=== PATIENT | female | born 1950 | race Caucasian/White ===

== ENCOUNTER → 2018-02-22 | Outpatient (CLI) | payer MEDICARE, BC | LOC: MC.RAD 07:26 | DX: N63.11 Unspecified lump in the right breast, upper outer quadrant (principal); Z98.82 Breast implant status ==

== ENCOUNTER → 2018-03-24 | Outpatient (CLI) | payer MEDICARE, BC ==
[~2018-03-24] MED LIST: ALEVE 220MG220 MG PO; BENADRYL25 M2 PO; BIOTIN5000 MCG PO; COZAAR 50MG50 MG/TAB PO; LOPID 600M600 MG/TAB PO; NEXIUM 24HR20 M1 PO; NORCO 325 MG-51 TAB PO; OSCAL 500 TAB500 MG PO; TYLENOL 500MG500 MG PO; TYLENOL PM EXTR1 TA1 PO; VITAMIN A10k PO; VITAMIND3 5000 PO
== END ==
LOC: COL.RAD 13:21
DX: C50.411 Malignant neoplasm of upper-outer quadrant of right female breast (principal)
CPT/HCPCS: A9541

== ENCOUNTER 2018-03-25 06:33 | Day surgery (SDC) | payer MEDICARE, BC ==
[~2018-03-25] VITALS: Ht 157.5 cm; Wt 60.5 kg
[2018-03-25] VITALS (7 sets, daily range): BP systolic 103–124; BP diastolic 47–68; PULSE 65–84; TEMP 97.6–98.1
[2018-03-25] MEDS ORDERED: COZAAR 50MG50 MG/TAB PO (08:20)
[2018-03-25] MEDS ORDERED: LOPID 600M600 MG/TAB PO (08:21)
[2018-03-25] MEDS ORDERED: BENADRYL25 M2 PO (08:22)
[2018-03-25] MEDS ORDERED: BIOTIN5000 MCG PO (08:22)
[2018-03-25] MEDS ORDERED: VITAMIND3 5000 PO (08:23)
[2018-03-25] MEDS ORDERED: NEXIUM 24HR20 M1 PO (08:24)
[2018-03-25] MEDS ORDERED: VITAMIN A10k PO (08:24)
[2018-03-25] MEDS ORDERED: TYLENOL PM EXTR1 TA1 PO (08:25)
[2018-03-25] MEDS ORDERED: ALEVE 220MG220 MG PO (08:26)
[2018-03-25] MEDS ORDERED: OSCAL 500 TAB500 MG PO (08:26)
[2018-03-25] MEDS ORDERED: TYLENOL 500MG500 MG PO (08:26)
[2018-03-25] MEDS ORDERED: NORCO 325 MG-51 TAB PO (13:07)
== END 2018-03-25 16:15 | disposition home or self-care (01) ==
LOC: SDCO 06:33
DX: C50.411 Malignant neoplasm of upper-outer quadrant of right female breast (principal); Z17.0 Estrogen receptor positive status [ER+]; I10 Essential (primary) hypertension; Z80.3 Family history of malignant neoplasm of breast; Z79.899 Other long term (current) drug therapy; E78.00 Pure hypercholesterolemia, unspecified; Z80.0 Family history of malignant neoplasm of digestive organs; C77.3 Secondary and unspecified malignant neoplasm of axilla and upper limb lymph nodes
CPT/HCPCS: C1788; J0330; J0690; J1100; J2250; J2405; J2550; J2704; J2795; J3010; J7120

== ENCOUNTER 2018-03-31 07:23 | Day surgery (SDC) | payer MEDICARE, BC ==
[~2018-03-31] VITALS: Ht 157.5 cm; Wt 57.5 kg
[2018-03-31] VITALS (7 sets, daily range): BP systolic 94–148; BP diastolic 44–72; PULSE 77–88; TEMP 97.2–97.8
[2018-03-31] MEDS ORDERED: NORCO 325 MG-51 TAB PO (10:23)
== END 2018-03-31 12:30 | disposition home or self-care (01) ==
LOC: SDCO 07:23
DX: C77.3 Secondary and unspecified malignant neoplasm of axilla and upper limb lymph nodes (principal); C50.411 Malignant neoplasm of upper-outer quadrant of right female breast; E78.00 Pure hypercholesterolemia, unspecified; I10 Essential (primary) hypertension; K21.9 Gastro-esophageal reflux disease without esophagitis; Z90.11 Acquired absence of right breast and nipple; Z87.891 Personal history of nicotine dependence; Z80.3 Family history of malignant neoplasm of breast; Z80.1 Family history of malignant neoplasm of trachea, bronchus and lung; Z80.8 Family history of malignant neoplasm of other organs or systems
CPT/HCPCS: J0690; J1100; J1885; J2250; J2405; J2704; J2765; J2795; J3010; J7120

== ENCOUNTER → 2018-04-14 | Outpatient (CLI) | payer MEDICARE, BC | LOC: COL.VAS 08:46 | DX: Z51.11 Encounter for antineoplastic chemotherapy (principal); C50.411 Malignant neoplasm of upper-outer quadrant of right female breast ==

== ENCOUNTER 2018-07-01 09:14 | Observation (INO) | payer MEDICARE, BC ==
[2018-07-01] VITALS (23 sets, daily range): BP systolic 100–139; BP diastolic 50–79; PULSE 79–100; TEMP 97.8–99.4
[~2018-07-01] VITALS: Wt 62.0 kg
[~2018-07-01 09:14] MED LIST changes: +DECADRON 1MG TAB1 MG PO; +DECADRON 4MG TAB4 MG PO; +HERCEPTIN440 MG/VIA IV; +K-DUR20 MEQ PO; +MAG-OX 400400 MG/TAB PO; +NEURONTIN300 MG/CAP PO; +NOVAPLUS CAR10 MG/ML IV; +RESTORIL 1515 MG/CAP PO; +SENSIPAR30 MG PO; +TAXOTERE IV
--- NOTE | 2018-07-01 10:35 | NUR ---
Pt to ct per ambulation. Pt placed in supine position and monitors applied.
--- NOTE | 2018-07-01 10:40 | NUR ---
O2 on at 2l/nc, Dr Hinkle in to room and talks with pt regarding procedure.
--- NOTE | 2018-07-01 11:01 | NUR ---
Specimens obtained by Dr Hinkle and placed in formalin. Specimen labeled.
--- NOTE | 2018-07-01 11:15 | NUR ---
Pt to EU 10 per cart s/p lung bx. Pt resting well, at bedside.
--- NOTE | 2018-07-01 13:55 | NUR ---
Pt to rad per w/c with Amber NAJERA for chest tube.
--- NOTE | 2018-07-01 14:40 | NUR ---
PT WAS TAKEN TO ROOM 353. ASSISTED TO BED. IN ROOM. REPORT GIVEN TO VANDANA NAJERA. PT STATES SHE IS FEELING FINE.
--- NOTE | 2018-07-01 14:50 | NUR ---
Pt arrives to medical floor from radiology. Pt alert, oriented, able to ambulate in room. Meds updated. Pt has chemo every 3 weeks; last received on last June 27. Pt has Heimlech chest tube placed by radiology intact to left chest. Remains on 2L O2 via NC. at bedside. Denies further needs at this time; will continue to monitor.
--- NOTE | 2018-07-01 15:33 | NUR ---
PT BROUGHT FROM EU [address] PLACED ON THE TABLE AND MONITORING EQUIPMENT PLACED.
--- NOTE | 2018-07-01 15:34 | NUR ---
PT GIVEN 1 MG VERSED AND [address] M[address] FROM [address] SMITH.
--- NOTE | 2018-07-01 15:35 | NUR ---
PT DOING WELL. VSS
--- NOTE | 2018-07-01 15:36 | NUR ---
PROCEDURE COMPLETED. PT STATES SHE IS FEELING FINE. INSTRUCTED PT ON CHEST TUBE CARE.
--- NOTE | 2018-07-01 18:00 | NUR ---
Pt had uneventful afternoon. Is complaining of minimal pain from the chest tube; prn tylenol given. Denies further needs at this time.
--- NOTE | 2018-07-01 19:02 | NUR ---
Pt complaining of incision pain; prn pain med and ice pack provided.
--- NOTE | 2018-07-01 21:34 | NUR ---
pt resting in bed. reports pain at incision site, prn meds give, some nausea, denied needs for meds. ANGIE diminished. LLL diminished. all lung ryan clear. bowel sounds normoactive. reported BM yesterday. no swelling. radial and pedal pulses 3+. no needs at this time, call light in reach.
[2018-07-02] VITALS (7 sets, daily range): BP systolic 104–140; BP diastolic 49–74; PULSE 56–92; TEMP 97.3–98.3
--- NOTE | 2018-07-02 00:17 | NUR ---
pt resting in bed. no pain. no nausea. pt denies needs at this time. brandon light in reach
--- NOTE | 2018-07-02 01:33 | NUR ---
pt reports pain in incision site, increases when coughing. prn pain meds given. reports relief. no needs at this time call light in reach
--- NOTE | 2018-07-02 05:14 | NUR ---
pt requested a stool softener, c/o constipation d/t narcotics- prn stool softener given. some incisional pain 3-5/10 throughout night. no needs at this time, call light in reach
--- NOTE | 2018-07-02 08:08 | NUR ---
Pt resting in bed with call light within reach; assessment complete and charted. Continues to have Heimlech valve intact to left chest. Denies further needs at this time; will continue to monitor.
--- NOTE | 2018-07-02 17:02 | NUR ---
Plan to return homw in [place] with Dannie . Patient denies the use of any DME's. Declines homehealth care. Patient reports PCP Dr. Padron, declines [facility], and drisst is how she obtains medicines. No additonal needs identify.
--- NOTE | 2018-07-02 17:44 | NUR ---
Pt resting in chair with call light within reach and at bedside. States she will want a pain pill in a little bit. Denies further needs at this time; will continue to monitor.
--- NOTE | 2018-07-02 18:51 | NUR ---
Report given to DANIA Castro. Reviewed clamping the chest tube between 0600 and 0700 tomorrow morning. Pt resting in chair. PRN pain meds given as ordered.
--- NOTE | 2018-07-02 20:44 | NUR ---
PT SITTING IN CHIAR A+OX4. NO PAIN AT THIS TIME. NO SOA. NO NEEDS AT THIS TIME. CALL LIGHT IN REACH
--- NOTE | 2018-07-03 00:48 | NUR ---
pt sanchop in chair. call light in reach
[2018-07-03 04:04] VITALS: BP 140/67; PULSE 86
--- NOTE | 2018-07-03 06:05 | NUR ---
this nurse closed pts heimlich valve at 0605. reports incisional pain, denied pain meds. no needs at this time, call light in reach
[2018-07-03 07:51] VITALS: BP 138/76; PULSE 88; TEMP 98.4
--- NOTE | 2018-07-03 10:00 | NUR ---
Assessment completed, alert/oriented, vital signs stable, denies any pain or discomfort, Chest tube was clamped at 0600 / CXR done and to review prior to removal of chest tube, she denies any increased SOA or dyspnea, lungs aer CTA / no resp difficulty noted, heart RRR, present at bedside denies needs
--- NOTE | 2018-07-03 12:41 | NUR ---
discharge instructions reviewed with the patient and her , isntructed to follow up with as instructed, continue previous home meds as before, no neew meds, IV site removed, I personally escorted the mout the door via wheelchair
== END 2018-07-03 12:54 | disposition home or self-care (01) ==
LOC: COL.RAD 09:14 → MEDICAL 14:46
PROVIDERS: ADMIT Internal Medicine
DX: J93.9 Pneumothorax, unspecified (principal); I10 Essential (primary) hypertension; K21.9 Gastro-esophageal reflux disease without esophagitis; E78.5 Hyperlipidemia, unspecified; G47.00 Insomnia, unspecified; G62.9 Polyneuropathy, unspecified; R91.1 Solitary pulmonary nodule; Z90.11 Acquired absence of right breast and nipple; Z85.3 Personal history of malignant neoplasm of breast; Z85.79 Personal history of other malignant neoplasms of lymphoid, hematopoietic and related tissues; Z87.891 Personal history of nicotine dependence
CPT/HCPCS: 99233-AI; G0378; G0379; J2250; J3010

== ENCOUNTER → 2018-08-09 | Outpatient (CLI) | payer MEDICARE, BC | LOC: COL.VAS 10:11 | DX: Z13.6 Encounter for screening for cardiovascular disorders (principal); C50.411 Malignant neoplasm of upper-outer quadrant of right female breast; I34.0 Nonrheumatic mitral (valve) insufficiency ==

== ENCOUNTER → 2018-11-04 | Outpatient (CLI) | payer MEDICARE, BC | LOC: COL.VAS 08:31 | DX: Z51.11 Encounter for antineoplastic chemotherapy (principal); C50.411 Malignant neoplasm of upper-outer quadrant of right female breast ==

== ENCOUNTER → 2019-02-07 | Outpatient (CLI) | payer MEDICARE, BC | LOC: COL.VAS 09:15 | DX: C50.411 Malignant neoplasm of upper-outer quadrant of right female breast (principal) ==

== ENCOUNTER 2020-06-17 09:52 | Outpatient (RCR) | payer MEDICARE, BC | END 2020-06-24 | disposition home or self-care (01) | LOC: MKS.ESL.PT | DX: C50.919 Malignant neoplasm of unspecified site of unspecified female breast (principal) ==

== ENCOUNTER → 2020-06-18 | Outpatient (CLI) | payer MEDICARE, BC | LOC: COL.RAD 08:53 | DX: C50.919 Malignant neoplasm of unspecified site of unspecified female breast (principal); M46.1 Sacroiliitis, not elsewhere classified; M89.9 Disorder of bone, unspecified | CPT/HCPCS: A9503 ==

== ENCOUNTER → 2020-08-22 | Outpatient (CLI) | payer MEDICARE, BC | LOC: COL.RAD 09:43 | DX: C50.411 Malignant neoplasm of upper-outer quadrant of right female breast (principal); R93.89 Abnormal findings on diagnostic imaging of other specified body structures ==

== ENCOUNTER 2020-08-23 09:00 | Outpatient (RCR) | payer MEDICARE, BC | END 2020-09-26 | disposition still patient (30) | LOC: MKS.ESL.PT | DX: C50.919 Malignant neoplasm of unspecified site of unspecified female breast (principal) ==